=== PATIENT | male | born 1975 | race Hispanic/Latino ===

== ENCOUNTER 2017-08-06 09:04 | Emergency (ER) | payer SELFPAY ==
[~2017-08-06] VITALS: Ht 167.6 cm; Wt 84.0 kg
[~2017-08-06 09:04] MED LIST: AMOXICILLIN500 MG PO
[2017-08-06 10:54] VITALS: BP 160/86
== END 2017-08-06 10:51 | disposition home or self-care (01) | DRG 607 ==
LOC: ED 09:04
DX: R21 Rash and other nonspecific skin eruption (principal); R23.4 Changes in skin texture

== ENCOUNTER 2019-11-06 | Emergency (ER) | payer SELFPAY ==
[2019-11-06] MEDS ORDERED: IBUPROFEN600 MG PO (11:46)
[2019-11-06] MEDS ORDERED: BAYER ASPIRIN325 MG PO (11:47)
[2019-11-06] MEDS ORDERED: LEVOTHYROXIN50 MC1 PO (11:47)
[2019-11-06] MEDS ORDERED: ELIQUIS5 MG PO (11:48)
[2019-11-06] MEDS ORDERED: LIPITOR40 M1 PO (11:48)
[2019-11-06 11:53] LABS: HEMATOCRIT 45.9 % (39.0-50.0); HEMOGLOBIN 15.3 g/dl (14.0-18.0); IMMATURE GRANULOCYTES 0.5 % (0.0-5.0); MEAN CELL VOLUME 92.7 fL CALC (80.0-100.0); MEAN CORPUSCULAR HGB 30.9 pG CALC (26.0-32.0); MEAN CORPUSCULAR HGB CONC 33.3 g/L CALC (32.0-36.0); NEUT# 9.88 thou/uL (1.82-7.42); RED BLOOD COUNT 4.95 mill/uL (4.70-6.10); RED CELL DISTRI WIDTH 12.1 % (11.5-15.5)
[2019-11-06 12:26] LABS: ANION GAP 18 (6-22 (CALC)); BUN 14 mg/dL (9-20); BUN/CREATININE RATIO 15 (12-20 (CALC)); CHLORIDE 100 mmol/l (95-108); CREATININE 0.9 mg/dL (0.7-1.3); GFR > 60 ML/MIN (>=60 (CALC)); GFR FOR AFR.AMER. > 60 ML/MIN (>=60 (CALC)); POTASSIUM 3.8 mmol/l (3.5-5.1); SODIUM 137 mmol/l (137-146)
[2019-11-06 12:42] LABS: CARBON DIOXIDE 23 mmol/l (22-30)
[2019-11-06] MEDS ORDERED: BACTRIM DS1 TAB PO (13:16)
[2019-11-06] MEDS ORDERED: CEPHALEXIN500 M1 PO (13:16)
== END 2019-11-06 13:26 | disposition home or self-care (01) | DRG 603 ==
PROVIDERS: Family Medicine
DX: L03.314 Cellulitis of groin (principal); I10 Essential (primary) hypertension
CPT/HCPCS: Q9967

== ENCOUNTER 2019-12-04 10:32 | Observation (INO) | payer SELFPAY ==
[~2019-12-04] VITALS: Ht 170.2 cm; Wt 87.2 kg
[~2019-12-04 10:32] MED LIST changes: +BACTRIM DS1 TAB PO; +BAYER ASPIRIN325 MG PO; +CEPHALEXIN500 M1 PO; +ELIQUIS5 MG PO; +IBUPROFEN600 MG PO; +LEVOTHYROXIN50 MC1 PO; +LIPITOR40 M1 PO
--- NOTE | 2019-12-04 10:38 | NUR ---
PT TO ROOM VIA WC
--- NOTE | 2019-12-04 11:02 | NUR ---
PT PRESENTS WITH LOWER LEFT CHEST PAIN OF 8/10 THAT STARTED TODAY AT 0900. PT HAS A HX OF HEART ATTACKS. PT DENIES BLURRED VISION OR DIZZINESS BUT CONFIRMS NAUSEA WITHOUT VOMITING. SYLVIA. EKG COMPLETED, IV INITIATED PT AOX4
[2019-12-04 11:16] LABS: HEMATOCRIT 47.7 % (39.0-50.0); HEMOGLOBIN 15.4 g/dl (14.0-18.0); IMMATURE GRANULOCYTES 0.2 % (0.0-5.0); MEAN CELL VOLUME 93.7 fL CALC (80.0-100.0); MEAN CORPUSCULAR HGB 30.3 pG CALC (26.0-32.0); MEAN CORPUSCULAR HGB CONC 32.3 g/L CALC (32.0-36.0); NEUT# 1.97 thou/uL (1.82-7.42); RED BLOOD COUNT 5.09 mill/uL (4.70-6.10); RED CELL DISTRI WIDTH 12.9 % (11.5-15.5)
[2019-12-04 11:27] LABS: ALBUMIN 4.6 g/dL (3.2-5.0); ALKALINE PHOSPHATASE 77 u/l (38-126); AMYLASE 85 u/l (30-110); ANION GAP 12 (6-22 (CALC)); BILIRUBIN, TOTAL 0.7 mg/dL (0.0-1.4); BUN 15 mg/dL (9-20); BUN/CREATININE RATIO 22 (12-20 (CALC)); CARBON DIOXIDE 25 mmol/l (22-30); CHLORIDE 105 mmol/l (95-108); CREATININE 0.7 mg/dL (0.7-1.3); GFR > 60 ML/MIN (>=60 (CALC)); GFR FOR AFR.AMER. > 60 ML/MIN (>=60 (CALC)); LIPASE 80 u/l (23-300); POTASSIUM 4.1 mmol/l (3.5-5.1); SGOT/AST 35 u/l (17-59); SODIUM 138 mmol/l (137-146); TOTAL PROTEIN 8.3 g/dL (6.3-8.2)
[2019-12-04 11:30] LABS: PROTHROMBIN TIME 10.7 SECONDS (9.0-12.5)
--- NOTE | 2019-12-04 12:30 | NUR ---
PT RESTING ON STRETCHER UPDATED ON PENDING ADMISSION AND ADVISED OF WAIT. CALL LIGHT WITHIN REACH
--- NOTE | 2019-12-04 13:32 | NUR ---
REPORT DANIEL YOUNG.
--- NOTE | 2019-12-04 13:40 | NUR ---
PT ARRIVED TO UNIT AT 1340 VIA WHEELCHAIR WITH ER STAFF; ALERT AND ORIENTED. MOSTLY ESTONIAN SPEAKING. AMBULATED TO BED WITH STEADY GAIT. C/O MILD LEFT SIDED CHEST PAIN. RESPIRATIONS EVEN AND UNLABORED ON ROOM AIR. TELE MONITOR ON; AFIB HEART RATE 110S-120S. IV SITE TO LAC APPEARS HEALTHY AND FLUSHES. LUNGS ARE CLEAR; HEART RATE IRREGULAR. ORIENTED TO ROOM AND CALL LIGHT SYSTEM. PLAN OF CARE DICUSSED. PT ENCOURAGED TO VERBALIZE CONCERNS. STATES UNDERSTANDING. SAFETY MEASURES IN PLACE. CALL LIGHT WITHIN REACH.
--- NOTE | 2019-12-04 13:40 | NUR ---
PT TRANSPORTED TO [facility] SURG STABLE AND IN NO DISTRESS. PT CARE ASSUMED TO HANNAH. Admission Note Report Given to: Transported by: X Wheelchair Stretcher Transported with: X Nurse Transporter X Patent IV O2 X Design Release Engineer Location: ICU X MS2
[2019-12-04 14:00] VITALS: BP 114/73
[2019-12-04 14:15] LABS: URINE BILIRUBIN - DIPSTICK NEGATIVE (NEGATIVE); URINE BLOOD DIPSTICK NEGATIVE (NEGATIVE); URINE COLOR YELLOW; URINE GLUCOSE - DIPSTICK NEGATIVE (NEGATIVE); URINE KETONE NEGATIVE (NEGATIVE); URINE LEUK ESTERASE NEGATIVE (NEGATIVE); URINE NITRITE - DIPSTICK NEGATIVE (Negative); URINE PROTEIN - DIPSTICK TRACE mg/dL (NEG-TRACE); URINE UROBILINOGEN - DIPSTICK 0.2 E.U./dL (0.2)
[2019-12-04 15:55] VITALS: BP 106/70
--- NOTE | 2019-12-04 18:07 | NUR ---
LAB AT BEDSIDE FOR TROPONIN.
--- NOTE | 2019-12-04 18:37 | NUR ---
HEART RATE INCREASED INTO 130'S PER CARDIAC MONTIOR WITH ACTIVITY SUCH EATING AND USING BATHROOM. DOES NOT SUSTAIN; CURRENTLY IN THE 90S. WILL CONTINUE TO MONTIOR.
--- NOTE | 2019-12-04 19:29 | NUR ---
PT SITTING IN BED WATCHING TV. A&O X3. PT DENIES ANY CP AT THIS TIME BUT DESCRIBES HIS PAIN "COMING AND GOING". NO OTHER NEEDS AT THIS TIME. EXPLAINED TO PT THAT HIS TROPONIN LEVELS HAVE BEEN NEGATIVE SO FAR AND EXPLAINED THEIR IMPORTANCE. PT VERBALIZED UNDERSTANDING. DISCUSSED POC. ASSESSMENT COMPLETED. CALL LIGHT IN REACH. CONTINUE TO MONITOR.
[2019-12-04 19:31] VITALS: BP 130/75
--- NOTE | 2019-12-04 21:09 | NUR ---
PT C/O OF NAUSEA. DR HOLT NOTIFIED. ORDERS FOR ZOFRAN 4MG IV REC.
--- NOTE | 2019-12-04 21:22 | NUR ---
IV ZOFRAN GIVEN. WILL REASSESS
--- NOTE | 2019-12-04 22:22 | NUR ---
PER PT NAUSEA HAS SUBSIDED. NO OTHER NEEDS AT THIS TIME. CALL LIGHT IN REACH. CONTINUE TO MONITOR.
--- NOTE | 2019-12-05 00:01 | NUR ---
PT SLEEPING IN BED. NO DISTRESS NOTED. CONTINUE TO MONITOR.
[2019-12-05 04:48] VITALS: BP 103/64
[2019-12-05 06:52] LABS: CHOLESTEROL HDL RATIO 3.1 (<4.4 (CALC)); MAGNESIUM 2.1 mg/dL (1.6-2.3)
--- NOTE | 2019-12-05 07:00 | NUR ---
SHIFT CHANGE REPORT, PT AWAKE AND ALERT RESTING IN BED, C/O LITTLE PAIN TO CHEST AREA BUT DID NOT RATE IT, TELE MONITOR IN PLACE, CALL GREEN IN REACH.
[2019-12-05 07:43] VITALS: BP 102/64
[2019-12-05 10:59] VITALS: BP 117/78
[2019-12-05 12:23] VITALS: BP 117/78
--- NOTE | 2019-12-05 15:14 | NUR ---
Discharge instructions given. Patient verbalizes understanding of same. Discharged in fair condition via Wheelchair to Home with *Other. All belongings sent with pt.
== END 2019-12-05 15:22 | disposition home or self-care (01) | DRG 313 ==
LOC: ED 10:32 → ED-I 12:10 → ED 12:45 → MS2 12:46
PROVIDERS: Family Medicine; ADMIT Internal Medicine; ATTEND Internal Medicine
DX: R07.2 Precordial pain (principal); B35.6 Tinea cruris; I10 Essential (primary) hypertension; E03.9 Hypothyroidism, unspecified; I48.91 Unspecified atrial fibrillation; E78.5 Hyperlipidemia, unspecified; I25.2 Old myocardial infarction; Z79.01 Long term (current) use of anticoagulants; Z87.891 Personal history of nicotine dependence

== ENCOUNTER 2020-11-21 21:16 | Observation (INO) | payer SELFPAY ==
[~2020-11-21] VITALS: Ht 170.2 cm; Wt 86.3 kg
[2020-11-21 21:42] LABS: HEMATOCRIT 45.9 % (39.0-50.0); HEMOGLOBIN 15.1 g/dl (14.0-18.0); IMMATURE GRANULOCYTES 0.2 % (0.0-5.0); MEAN CELL VOLUME 93.9 fL CALC (80.0-100.0); MEAN CORPUSCULAR HGB 30.9 pG CALC (26.0-32.0); MEAN CORPUSCULAR HGB CONC 32.9 g/dL CAL (32.0-36.0); NEUT# 3.86 thou/uL (1.82-7.42); RED BLOOD COUNT 4.89 mill/uL (4.70-6.10); RED CELL DISTRI WIDTH 12.6 % (11.5-15.5)
[2020-11-21 21:59] LABS: ALBUMIN 4.8 g/dL (3.2-5.0); ALKALINE PHOSPHATASE 79 u/l (38-126); ANION GAP 14 (6-22 (CALC)); BILIRUBIN, TOTAL 0.5 mg/dL (0.0-1.4); BUN 21 mg/dL (9-20); BUN/CREATININE RATIO 24 (12-20 (CALC)); CARBON DIOXIDE 28 mmol/l (22-30); CHLORIDE 102 mmol/l (95-108); CREATININE 0.9 mg/dL (0.7-1.3); GFR > 60 ML/MIN (>=60 (CALC)); GFR FOR AFR.AMER. > 60 ML/MIN (>=60 (CALC)); POTASSIUM 3.4 mmol/l (3.5-5.1); SGOT/AST 31 u/l (17-59); SODIUM 140 mmol/l (137-146); TOTAL PROTEIN 8.6 g/dL (6.3-8.2)
[2020-11-21 22:10] LABS: MYOGLOBIN 39 ng/mL (0 - 121)
[2020-11-22] VITALS (16 sets, daily range): BP systolic 90–126; BP diastolic 51–83
[2020-11-22 06:11] LABS: URINE BILIRUBIN - DIPSTICK NEGATIVE (NEGATIVE); URINE COLOR YELLOW; URINE GLUCOSE - DIPSTICK NEGATIVE (NEGATIVE); URINE KETONE NEGATIVE (NEGATIVE); URINE PROTEIN - DIPSTICK 100 mg/dL (NEG-TRACE); URINE SPECIFIC GRAVITY >=1.030; URINE UROBILINOGEN - DIPSTICK 0.2 E.U./dL (0.2)
[2020-11-22 06:12] LABS: URINE BLOOD DIPSTICK NEGATIVE (NEGATIVE); URINE LEUK ESTERASE NEGATIVE (NEGATIVE); URINE NITRITE - DIPSTICK NEGATIVE (Negative)
[2020-11-23] VITALS (7 sets, daily range): BP systolic 97–121; BP diastolic 64–87
[2020-11-23] MEDS ORDERED: LOPRESSOR 550 MG/TAB PO (10:18)
== END 2020-11-23 11:30 | disposition home or self-care (01) | DRG 308 ==
LOC: ED 21:16 → ED-I 23:50 → ED 11-22 01:02 → ICU 11-22 01:03
PROVIDERS: Emergency Medicine; ADMIT Internal Medicine; ATTEND Internal Medicine
DX: I48.91 Unspecified atrial fibrillation (principal); U07.1 COVID-19; I10 Essential (primary) hypertension; I25.10 Atherosclerotic heart disease of native coronary artery without angina pectoris; E78.5 Hyperlipidemia, unspecified; E03.9 Hypothyroidism, unspecified; I25.2 Old myocardial infarction; Z95.5 Presence of coronary angioplasty implant and graft; Z79.01 Long term (current) use of anticoagulants; Z87.891 Personal history of nicotine dependence

== ENCOUNTER 2022-06-01 06:33 | Observation (INO) | payer SELFPAY ==
[~2022-06-01] VITALS: Ht 170.2 cm; Wt 82.0 kg
[2022-06-01] VITALS (38 sets, daily range): BP systolic 110–178; BP diastolic 75–111
[~2022-06-01 06:33] MED LIST changes: +LOPRESSOR 550 MG/TAB PO
[2022-06-01 07:12] LABS: HEMATOCRIT 45.7 % (39.0-50.0); HEMOGLOBIN 15.5 g/dl (14.0-18.0); IMMATURE GRANULOCYTES 0.2 % (0.0-5.0); MEAN CELL VOLUME 95.6 fL CALC (80.0-100.0); MEAN CORPUSCULAR HGB 32.4 pG CALC (26.0-32.0); MEAN CORPUSCULAR HGB CONC 33.9 g/dL CAL (32.0-36.0); NEUT# 4.02 thou/uL (1.82-7.42); RED BLOOD COUNT 4.78 mill/uL (4.70-6.10); RED CELL DISTRI WIDTH 13.5 % (11.5-15.5)
[2022-06-01 07:33] LABS: ALBUMIN 4.4 g/dL (3.2-5.0); ALKALINE PHOSPHATASE 81 u/l (38-126); BILIRUBIN, TOTAL 0.5 mg/dL (0.0-1.4); BUN 7 mg/dL (9-20); BUN/CREATININE RATIO 11 (12-20 (CALC)); CARBON DIOXIDE 24 mmol/l (22-30); CHLORIDE 107 mmol/l (95-108); CREATININE 0.6 mg/dL (0.7-1.3); ETHYL ALCOHOL 22 mg/dl (0-30); GFR FOR AFR.AMER. > 60 ML/MIN (>=60 (CALC)); GFR OTHER RACES > 60 ML/MIN (>=60 (CALC)); SGOT/AST 33 u/l (17-59); SODIUM 141 mmol/l (137-146); TOTAL PROTEIN 8.2 g/dL (6.3-8.2)
[2022-06-01 07:35] LABS: ANION GAP 14 (6-22 (CALC)); POTASSIUM 3.5 mmol/l (3.5-5.1)
[2022-06-01 07:45] LABS: MYOGLOBIN 31 ng/mL (0 - 121)
[2022-06-01 07:46] LABS: D-DIMER 0.52 mg/L (0.19-0.60)
[2022-06-01 08:21] LABS: ACT PARTIAL THROMBO TIME 25.4 SECONDS (20.0-32.5); PROTHROMBIN TIME 10.3 SECONDS (9.0-12.5)
[2022-06-01 09:49] LABS: TSH, 3RD GENERATION 3.76 uIU/mL (0.47 - 4.68)
[2022-06-02] VITALS (13 sets, daily range): BP systolic 117–159; BP diastolic 79–116
[2022-06-02 05:26] LABS: HEMOGLOBIN 15.8 g/dl (14.0-18.0); MEAN CELL VOLUME 96.3 fL CALC (80.0-100.0); MEAN CORPUSCULAR HGB 32.4 pG CALC (26.0-32.0); MEAN CORPUSCULAR HGB CONC 33.6 g/dL CAL (32.0-36.0); RED BLOOD COUNT 4.88 mill/uL (4.70-6.10); RED CELL DISTRI WIDTH 13.6 % (11.5-15.5)
[2022-06-02 05:46] LABS: ANION GAP 11 (6-22 (CALC)); BUN 14 mg/dL (9-20); BUN/CREATININE RATIO 20 (12-20 (CALC)); CALCULATED LDLCHOLESTEROL 106 mg/dL (62-129 (CALC)); CARBON DIOXIDE 27 mmol/l (22-30); CHLORIDE 104 mmol/l (95-108); CHOLESTEROL HDL RATIO 2.8 (<4.4 (CALC)); CREATININE 0.7 mg/dL (0.7-1.3); GFR FOR AFR.AMER. > 60 ML/MIN (>=60 (CALC)); GFR OTHER RACES > 60 ML/MIN (>=60 (CALC)); HDL CHOLESTEROL 66 mg/dL (>=40); MAGNESIUM 2.1 mg/dL (1.6-2.3); POTASSIUM 3.9 mmol/l (3.5-5.1); SODIUM 138 mmol/l (137-146); TOTAL CHOLESTEROL 185 mg/dl (0-199); TOTAL TRIGLYCERIDES 65 mg/dl (30-149); VLDL CHOLESTROL 13 mg/dl (5-56 (CALC))
[2022-06-02] MEDS ORDERED: XARELTO20 MG PO (09:40)
[2022-06-02] MEDS ORDERED: LOPRESSOR 550 MG/TAB PO (09:40)
== END 2022-06-02 16:00 | disposition home or self-care (01) | DRG 310 ==
LOC: ED 06:33 → ED-I 08:50 → ED 09:09 → ICU 09:10
PROVIDERS: Family Medicine; ADMIT Internal Medicine; ATTEND Internal Medicine
PROC: 3E0234Z Introduction of Serum, Toxoid and Vaccine into Muscle, Percutaneous Approach (ICD-10-PCS; principal; 2022-06-02)
DX: I48.91 Unspecified atrial fibrillation (principal); I10 Essential (primary) hypertension; I25.10 Atherosclerotic heart disease of native coronary artery without angina pectoris; E78.5 Hyperlipidemia, unspecified; F10.20 Alcohol dependence, uncomplicated; I25.2 Old myocardial infarction; T44.7X6A Underdosing of beta-adrenoreceptor antagonists, initial encounter; Z91.128 Patient's intentional underdosing of medication regimen for other reason; Z95.5 Presence of coronary angioplasty implant and graft; Z20.822 Contact with and (suspected) exposure to COVID-19; Z23 Encounter for immunization

== ENCOUNTER 2024-12-18 15:46 | Emergency (ER) | payer SELFPAY ==
[~2024-12-18] VITALS: Ht 162.6 cm; Wt 90.7 kg
[~2024-12-18 15:46] MED LIST changes: +XARELTO20 MG PO
[2024-12-18 17:06] VITALS: BP 153/95
== END 2024-12-18 20:34 | disposition left against medical advice (07) | DRG 951 ==
LOC: ED 15:46 → LWOBS 20:34
DX: Z53.21 Procedure and treatment not carried out due to patient leaving prior to being seen by health care provider (principal)